=== PATIENT | male | born 1950 | race Caucasian/White ===

== ENCOUNTER 2020-08-04 08:20 | Day surgery (SDC) | payer MEDICARE, OTHER ==
[~2020-08-04] VITALS: Ht 177.8 cm; Wt 78.7 kg
[~2020-08-04 08:20] MED LIST: ALIGN PROBIOTIC; AMIT10; AMIT50; ASPI325; BACL10 PO; CEPH500; CLIN300; HYDACE5; NAPR220; OMEP20ER; OXYC15ER PO
[2020-08-04] MEDS ORDERED: FENTANYL1 EA10 (08:58)
--- NOTE | 2020-08-04 09:14 | NUR ---
08/04/20 0914 Eileen Ramírez 1ST IV ATTEMPT IN RIGHT FOREARM INFILTRATED. SECOND ATTEMPT IN RIGHT FOREARM SUCCESSFUL
== END 2020-08-04 10:30 | disposition home or self-care (01) ==
LOC: ORSCSDS 08:20
PROVIDERS: Ophthalmology
PROC: 08RK3JZ Replacement of Left Lens with Synthetic Substitute, Percutaneous Approach (ICD-10-PCS; principal; 2020-08-04 09:30)
DX: H25.12 Age-related nuclear cataract, left eye (principal); K21.9 Gastro-esophageal reflux disease without esophagitis; Z79.899 Other long term (current) drug therapy
CPT/HCPCS: J2001; J2250; J3010; J3301; J7040; V2632